=== PATIENT | male | born 1970 | race Caucasian/White ===

== ENCOUNTER 2021-02-01 10:10 | Day surgery (SDCO) | payer OTHER ==
[~2021-02-01] VITALS: Ht 182.9 cm; Wt 181.4 kg
[2021-02-01 11:03] LABS: BASOPHIL 0.4 % (0-2); EOSINOPHIL 0.7 % (0-5); HGB 14.8 g/dl (13.2-18.0); LYMPHOCYTE 28.4 % (15-48); MCH 32.7 pg (25.0-31.0); MCHC 36.1 g/dL (32.0-36.0); MCV 90.5 fL (78.0-100.0); MONOCYTE 7.9 % (0-12); MPV 9.9 fL (6.0-9.5); NEUTROPHIL 61.7 % (41-80); NRBC 0; PLT 172 K/uL (150-400); RBC 4.53 M/uL (4.70-6.00); RDW 13.2 % (11.5-14.0); WBC 8.1 K/uL (4.0-10.5)
[2021-02-01 11:44] LABS: ALBUMIN 3.1 g/dL (3.4-5.0); BILIRUBIN - TOTAL 0.7 mg/dL (0.2-1.0); BUN/CREAT RATIO (CALC) 11.3 RATIO; CREATININE 2.83 mg/dL (0.67-1.17); GLOBULIN (CALCULATION) 3.8 g/dL; POTASSIUM 3.2 mmol/L (3.5-5.1); TOTAL PROTEIN 6.9 g/dL (6.4-8.2)
[2021-02-01 12:31] LABS: BILIRUBIN 2+ mg/dL (NEGATIVE); BLOOD NEGATIVE Ery/uL (NEGATIVE); CLARITY CLOUDY (CLEAR); COLOR YELLOW (YELLOW); GLUCOSE (U) NORMAL (NORMAL); LEUKOCYTES TRACE Leu/uL (NEGATIVE); NITRITE NEGATIVE (NEGATIVE); PROTEIN 3+ mg/dL (NEGATIVE); SPECIFIC GRAVITY >=1.030 (1.001-1.030)
[2021-02-01 12:42] LABS: URINARY RBC RARE; URINARY WBC 20-50
[2021-02-01 12:43] LABS: BACTERIA 3+; SQUAMOUS EPITHELIAL CELLS 20-50
[2021-02-01 12:45] LABS: GRANULAR CASTS MODERATE
[2021-02-01] MEDS ORDERED: BENAZEPRIL HCL20 MG PO (16:57)
[2021-02-01] MEDS ORDERED: HCTZ25 MG PO (16:57)
[2021-02-01] MEDS ORDERED: LIPITOR20 MG PO (16:59)
[2021-02-01] MEDS ORDERED: ALL DAY ALLERGY10 M2 PO (17:00)
[2021-02-01] MEDS ORDERED: VITAMIN D31250 MC1 PO (17:01)
[2021-02-01] MEDS ORDERED: TESTOSTERONE100 MG PO (17:03)
[2021-02-02 06:04] LABS: BASOPHIL 0.4 % (0-2); EOSINOPHIL 0.9 % (0-5); HCT 35.8 % (42.0-52.0); HGB 13.1 g/dl (13.2-18.0); LYMPHOCYTE 40.1 % (15-48); MCH 33.2 pg (25.0-31.0); MCHC 36.6 g/dL (32.0-36.0); MCV 90.9 fL (78.0-100.0); NEUTROPHIL 50.6 % (41-80); NRBC 0; PLT 163 K/uL (150-400); RBC 3.94 M/uL (4.70-6.00); RDW 13.2 % (11.5-14.0); WBC 6.9 K/uL (4.0-10.5)
[2021-02-02 06:20] LABS: ALBUMIN 2.7 g/dL (3.4-5.0); BILIRUBIN - TOTAL 0.6 mg/dL (0.2-1.0); BUN/CREAT RATIO (CALC) 17.1 RATIO; CREATININE 1.64 mg/dL (0.67-1.17); GLOBULIN (CALCULATION) 3.4 g/dL; MAGNESIUM 1.9 mg/dL (1.8-2.4); POTASSIUM 3.3 mmol/L (3.5-5.1); TOTAL PROTEIN 6.1 g/dL (6.4-8.2)
[2021-02-02] MEDS ORDERED: PANTOPRAZOLE SO40 MG PO (14:54)
[2021-02-02] MEDS ORDERED: DIPHENOXYLATE-1 EACH PO (14:54)
== END 2021-02-02 15:59 | disposition home or self-care (01) ==
LOC: FER 10:10 → FMS 14:41
PROVIDERS: Emergency Medicine; ADMIT Internal Medicine
DX: N17.9 Acute kidney failure, unspecified (principal); A08.4 Viral intestinal infection, unspecified; E86.0 Dehydration; E87.6 Hypokalemia; R59.0 Localized enlarged lymph nodes; I10 Essential (primary) hypertension; I95.9 Hypotension, unspecified; N30.00 Acute cystitis without hematuria; E66.01 Morbid (severe) obesity due to excess calories; Z68.43 Body mass index [BMI] 50.0-59.9, adult; Z79.899 Other long term (current) drug therapy; Z20.822 Contact with and (suspected) exposure to COVID-19
CPT/HCPCS: 36415; 80053; 81001; 82150; 83690; 83735; 85025; 87045; 87046; 87088; 87205; 87449; 94010; G0378; J1644; J7030; J7120; U0002

== ENCOUNTER 2021-07-11 13:26 | Emergency (ER) | payer OTHER ==
[~2021-07-11 13:26] MED LIST: ALL DAY ALLERGY10 M2 PO; BENAZEPRIL HCL20 MG PO; DIPHENOXYLATE-1 EACH PO; HCTZ25 MG PO; LIPITOR20 MG PO; PANTOPRAZOLE SO40 MG PO; TESTOSTERONE100 MG PO; VITAMIN D31250 MC1 PO
== END 2021-07-11 14:40 | disposition home or self-care (01) ==
LOC: FER 13:26
DX: S61.412A Laceration without foreign body of left hand, initial encounter (principal); Z53.8 Procedure and treatment not carried out for other reasons; W45.8XXA Other foreign body or object entering through skin, initial encounter